=== PATIENT | male | born 1950 | race Caucasian/White ===

== ENCOUNTER 2018-03-30 09:40 | Inpatient (IN) | payer MEDICARE, BC, OTHER ==
[~2018-03-30] VITALS: Ht 182.9 cm; Wt 101.3 kg
[2018-03-30 10:31] LABS: EOSINOPHILS # (AUTO) 0.1 X10'3 (0-0.9); HEMOGLOBIN 13.7 g/dl (14.0-17.9); LYMPHOCYTES # (AUTO) 1.3 X10'3 (1.1-4.8)
[2018-03-30 10:36] LABS: BASOPHILS % (AUTO) 0.6 % (0-1); EOSINOPHILS % (AUTO) 1.2 % (0-6); HEMATOCRIT 41.1 % (42.0-52.0); LYMPHOCYTES % (AUTO) 18.2 % (21-51); MEAN CORPUSCULAR HEMOGLOBIN 34.2 PG (27.0-31.0); MEAN CORPUSCULAR HGB CONC 33.4 % (33.0-36.5); MEAN CORPUSCULAR VOLUME 102.2 FL (78-98); MEAN PLATELET VOLUME 8.8 FL (7.4-10.4); MONOCYTES # (AUTO) 1.2 X10'3 (0-0.9); MONOCYTES % (AUTO) 16.5 % (2-12); NEUTROPHILS # (AUTO) 4.7 X10'3 (1.8-7.7); NEUTROPHILS % (AUTO) 63.5 % (42-75); PLATELET COUNT 154 X10'3 (140-440); RED BLOOD COUNT 4.02 X10'6 (4.70-6.10); RED CELL DISTRIBUTION WIDTH 12.1 % (11.5-14.5); WHITE BLOOD COUNT 7.3 X10'3 (4.5-11.0)
[2018-03-30 10:42] LABS: INR 1.2 INR; PARTIAL THROMBOPLASTIN TIME 28 SECONDS (22-32); PROTHROMBIN TIME 12.1 SECONDS (9.0-12.0)
[2018-03-30 10:44] LABS: ALANINE AMINOTRANSFERASE 33 U/L (12-78); ALBUMIN 3.5 G/DL (3.4-5.0); ALBUMIN/GLOBULIN RATIO 0.8 (1.1-1.5); ALKALINE PHOSPHATASE 115 IU/L (46-116); ANION GAP 8 (8-16); ASPARTATE AMINO TRANSFERASE 29 U/L (10-37); BILIRUBIN,TOTAL 1.2 MG/DL (0.1-1.0); BLOOD UREA NITROGEN 14 MG/DL (7-18); BUN/CREATININE RATIO 14.4 (5.4-32.0); CALCIUM 8.7 MG/DL (8.5-10.1); CHLORIDE 99 MMOL/L (99-107); CREATININE 0.97 MG/DL (0.60-1.10); GLUCOSE 128 MG/DL (70-104); SODIUM 137 MMOL/L (135-145); TOTAL CARBON DIOXIDE 30.1 MMOL/L (24-32); TOTAL PROTEIN 7.8 G/DL (6.4-8.2); eGFR 77 ML/MIN
[2018-03-30] MEDS ORDERED: furosemide 10 MG/1 ML 10ml inj IV ONE (11:00)
[2018-03-30] MEDS ORDERED: FURO-150 PO (11:29)
[2018-03-30] MEDS ORDERED: AMLO2.5T2 PO (11:29)
[2018-03-30] MEDS ORDERED: ATOR10TA87 PO (11:29)
[2018-03-30] MEDS ORDERED: OMEP20CA10 PO (11:31)
[2018-03-30] MEDS ORDERED: POTA10CA44 PO (11:31)
[2018-03-30] MEDS ORDERED: ondansetron/PF 4mg/2ml inj IV PRN (12:40)
[2018-03-30] MEDS ORDERED: magnesium Cl slow-release 64mg tablet PO PRN (12:40)
[2018-03-30] MEDS ORDERED: magnesium 2GM in 50ml NS 50 ML IV PRN (12:40)
[2018-03-30] MEDS ORDERED: acetaminophen 325mg tablet PO PRN ×2 (12:40)
[2018-03-30] MEDS ORDERED: magnesium 4gm in 100ml NS 100 ML IV PRN (12:40)
[2018-03-30] MEDS ORDERED: potassium Cl 20 mEq SR tablet PO PRN ×2 (12:40)
[2018-03-30] MEDS ORDERED: potassium Cl 40MEQ/NS 500ml 500 ML IV PRN ×2 (12:40)
[2018-03-30] MEDS ORDERED: iohexol 350MG/ML 100ml bottle IV ONE ×2 (13:25→13:43)
[2018-03-30] MEDS: docusate sod 100mg capsule PO SCH (20:00)
[2018-03-30] MEDS: heparin, porcine 5000 units/ml vial SQ SCH (20:58)
[2018-03-30] MEDS ORDERED: temazepam 15mg capsule PO PRN (21:00)
[2018-03-30 21:18] VITALS: BP 120/60
--- NOTE | 2018-03-30 21:18 | NUR ---
pt arrived to floor via wheel chair, ambulated to bed with a steady gait. pt oriented to room and call light. VSS. 2RN skin check performed with Celso SHEA.
[2018-03-30 22:00] VITALS: BP 137/63
[2018-03-31 02:00] VITALS: BP 140/62
[2018-03-31 05:50] LABS: ALANINE AMINOTRANSFERASE 26 U/L (12-78); ALBUMIN 3.3 G/DL (3.4-5.0); ALBUMIN/GLOBULIN RATIO 0.8 (1.1-1.5); ALKALINE PHOSPHATASE 109 IU/L (46-116); ANION GAP 10 (8-16); ASPARTATE AMINO TRANSFERASE 29 U/L (10-37); BILIRUBIN,TOTAL 1.2 MG/DL (0.1-1.0); BLOOD UREA NITROGEN 12 MG/DL (7-18); BUN/CREATININE RATIO 14.3 (5.4-32.0); CALCIUM 8.7 MG/DL (8.5-10.1); CHLORIDE 101 MMOL/L (99-107); CHOL/HDL RATIO 1.8 (0.00-4.99); CHOLESTEROL 121 MG/DL (0-200); CREATININE 0.84 MG/DL (0.60-1.10); GLUCOSE 104 MG/DL (70-104); HDL CHOLESTEROL 68 MG/DL (35-60); LDL CHOLESTEROL 46 MG/DL (50-100); POTASSIUM 3.7 MMOL/L (3.5-5.1); SODIUM 139 MMOL/L (135-145); TOTAL CARBON DIOXIDE 27.8 MMOL/L (24-32); TOTAL PROTEIN 7.4 G/DL (6.4-8.2); TRIGLYCERIDES 77 MG/DL (20-135); eGFR > 90 ML/MIN
[2018-03-31 05:52] LABS: BASOPHILS % (AUTO) 0.4 % (0-1); EOSINOPHILS # (AUTO) 0.2 X10'3 (0-0.9); EOSINOPHILS % (AUTO) 2.5 % (0-6); HEMATOCRIT 41.3 % (42.0-52.0); HEMOGLOBIN 13.6 g/dl (14.0-17.9); LYMPHOCYTES # (AUTO) 1.3 X10'3 (1.1-4.8); MEAN CORPUSCULAR HEMOGLOBIN 33.4 PG (27.0-31.0); MEAN CORPUSCULAR HGB CONC 32.9 % (33.0-36.5); MEAN CORPUSCULAR VOLUME 101.6 FL (78-98); MEAN PLATELET VOLUME 9.2 FL (7.4-10.4); MONOCYTES % (AUTO) 16.2 % (2-12); NEUTROPHILS # (AUTO) 3.7 X10'3 (1.8-7.7); NEUTROPHILS % (AUTO) 59.9 % (42-75); PLATELET COUNT 135 X10'3 (140-440); RED BLOOD COUNT 4.06 X10'6 (4.70-6.10); RED CELL DISTRIBUTION WIDTH 12.3 % (11.5-14.5); WHITE BLOOD COUNT 6.2 X10'3 (4.5-11.0)
[2018-03-31 06:00] VITALS: BP 151/76
--- NOTE | 2018-03-31 06:19 | NUR ---
Problems reprioritized. Patient report given, questions answered & plan of care reviewed with Jesusita SHEA.
--- NOTE | 2018-03-31 06:52 | NUR ---
Patient in room PCU 3026. I have received report from Abelardo SHEA and had the opportunity to ask questions and assume patient care.
[2018-03-31] MEDS: docusate sod 100mg capsule PO SCH ×2 (07:54→19:18)
[2018-03-31] MEDS: atorvastatin 10mg tablet PO SCH (07:54)
[2018-03-31] MEDS: pantoprazole 40mg Tablet.DR PO SCH (07:54)
[2018-03-31] MEDS: K and/or MAG REPLACEMENT MC SCH (07:56)
[2018-03-31] MEDS: heparin, porcine 5000 units/ml vial SQ SCH ×2 (07:58→19:19)
[2018-03-31] MEDS ORDERED: furosemide 10 MG/1 ML 10ml inj IV SCH (08:00)
[2018-03-31] MEDS ORDERED: amLODIPine 5mg tablet PO SCH (08:00)
[2018-03-31] MEDS: CefTRIAXone/D5W-Rocephin 1gm 50 ML IV SCH (10:30)
[2018-03-31 11:00] VITALS: BP 117/70
[2018-03-31] MEDS: folic acid 1mg tablet PO SCH (11:54)
[2018-03-31 15:00] VITALS: BP 155/55
[2018-03-31] MEDS: ipratropium/albuterol 3ml nebule NEB SCH ×3 (15:23→23:45)
[2018-03-31] MEDS: potassium Cl 20 mEq SR tablet PO SCH (17:29)
[2018-03-31 18:00] VITALS: BP 117/59
--- NOTE | 2018-03-31 18:42 | NUR ---
Problems reprioritized. Patient report given, questions answered & plan of care reviewed with Abelardo SHEA.
--- NOTE | 2018-03-31 18:59 | NUR ---
Patient in room PCU 3013. I have received report from Jesusita SHEA and had the opportunity to ask questions and assume patient care.
[2018-03-31] MEDS: thiamine 100mg tablet PO SCH (19:18)
[2018-03-31] MEDS: furosemide 10 MG/1 ML 10ml inj IV SCH (19:25)
[2018-03-31] MEDS: clotrimazole topical cream 15gm tube TP SCH (19:27)
[2018-03-31 22:00] VITALS: BP 113/60
[2018-04-01] VITALS (7 sets, daily range): BP systolic 126–155; BP diastolic 61–69
[2018-04-01] MEDS: ipratropium/albuterol 3ml nebule NEB SCH ×6 (02:30→23:12)
[2018-04-01 06:32] LABS: BASOPHILS % (AUTO) 0.3 % (0-1); EOSINOPHILS # (AUTO) 0.1 X10'3 (0-0.9); HEMATOCRIT 40.2 % (42.0-52.0); HEMOGLOBIN 13.6 g/dl (14.0-17.9); LYMPHOCYTES # (AUTO) 1.5 X10'3 (1.1-4.8); LYMPHOCYTES % (AUTO) 22.9 % (21-51); MEAN CORPUSCULAR HGB CONC 33.8 % (33.0-36.5); MEAN CORPUSCULAR VOLUME 100.5 FL (78-98); MEAN PLATELET VOLUME 8.9 FL (7.4-10.4); MONOCYTES % (AUTO) 15.9 % (2-12); NEUTROPHILS # (AUTO) 3.8 X10'3 (1.8-7.7); NEUTROPHILS % (AUTO) 58.9 % (42-75); PLATELET COUNT 145 X10'3 (140-440); RED CELL DISTRIBUTION WIDTH 12.3 % (11.5-14.5); WHITE BLOOD COUNT 6.4 X10'3 (4.5-11.0)
--- NOTE | 2018-04-01 06:47 | NUR ---
Problems reprioritized. Patient report given, questions answered & plan of care reviewed with Brit SHEA.
[2018-04-01 06:54] LABS: ALANINE AMINOTRANSFERASE 29 U/L (12-78); ALBUMIN 3.4 G/DL (3.4-5.0); ALBUMIN/GLOBULIN RATIO 0.8 (1.1-1.5); ALKALINE PHOSPHATASE 108 IU/L (46-116); ANION GAP 12 (8-16); ASPARTATE AMINO TRANSFERASE 24 U/L (10-37); BILIRUBIN,TOTAL 0.9 MG/DL (0.1-1.0); BLOOD UREA NITROGEN 10 MG/DL (7-18); CALCIUM 8.9 MG/DL (8.5-10.1); CHLORIDE 99 MMOL/L (99-107); GLUCOSE 112 MG/DL (70-104); MAGNESIUM 1.9 MG/DL (1.5-2.4); POTASSIUM 3.6 MMOL/L (3.5-5.1); SODIUM 137 MMOL/L (135-145); TOTAL CARBON DIOXIDE 26.4 MMOL/L (24-32); TOTAL PROTEIN 7.6 G/DL (6.4-8.2); eGFR 74 ML/MIN
--- NOTE | 2018-04-01 06:57 | NUR ---
Patient in room PCU 3013. I have received report from MONSE OSULLIVAN and had the opportunity to ask questions and assume patient care.
[2018-04-01] MEDS: pantoprazole 40mg Tablet.DR PO SCH (07:26)
[2018-04-01] MEDS: docusate sod 100mg capsule PO SCH ×2 (07:26→20:13)
[2018-04-01] MEDS: heparin, porcine 5000 units/ml vial SQ SCH ×2 (07:26→20:17)
[2018-04-01] MEDS: thiamine 100mg tablet PO SCH ×2 (07:26→20:15)
[2018-04-01] MEDS: atorvastatin 10mg tablet PO SCH (07:27)
[2018-04-01] MEDS: folic acid 1mg tablet PO SCH (07:27)
[2018-04-01] MEDS: furosemide 10 MG/1 ML 10ml inj IV SCH ×2 (07:29→20:19)
[2018-04-01] MEDS: CefTRIAXone/D5W-Rocephin 1gm 50 ML IV SCH (07:33)
[2018-04-01] MEDS: K and/or MAG REPLACEMENT MC SCH (07:36)
[2018-04-01] MEDS: clotrimazole topical cream 15gm tube TP SCH ×2 (07:37→20:17)
[2018-04-01] MEDS: potassium Cl 20 mEq SR tablet PO SCH ×2 (07:39→17:17)
[2018-04-01] MEDS: diphenhydrAMINE 25mg capsule PO SCH ×2 (14:22→20:14)
--- NOTE | 2018-04-01 18:43 | NUR ---
Problems reprioritized. Patient report given, questions answered & plan of care reviewed with MONSE ANDERSON SBAR AND BEDSIDE.
--- NOTE | 2018-04-01 18:44 | NUR ---
Patient in room PCU 3013. I have received report from MONSE Rae, and MONSE Peter and had the opportunity to ask questions and assume patient care.
[2018-04-01] MEDS: famotidine 20mg tablet PO SCH (20:13)
[2018-04-02 02:00] VITALS: BP 126/67
[2018-04-02] MEDS: ipratropium/albuterol 3ml nebule NEB SCH ×2 (03:00→07:00)
[2018-04-02 05:26] LABS: BASOPHILS % (AUTO) 0.5 % (0-1); EOSINOPHILS # (AUTO) 0.2 X10'3 (0-0.9); EOSINOPHILS % (AUTO) 3.8 % (0-6); HEMATOCRIT 42.9 % (42.0-52.0); HEMOGLOBIN 14.1 g/dl (14.0-17.9); LYMPHOCYTES # (AUTO) 1.2 X10'3 (1.1-4.8); LYMPHOCYTES % (AUTO) 19.2 % (21-51); MEAN CORPUSCULAR HEMOGLOBIN 33.5 PG (27.0-31.0); MEAN CORPUSCULAR VOLUME 101.7 FL (78-98); MEAN PLATELET VOLUME 8.2 FL (7.4-10.4); MONOCYTES % (AUTO) 15.6 % (2-12); NEUTROPHILS # (AUTO) 3.7 X10'3 (1.8-7.7); NEUTROPHILS % (AUTO) 60.9 % (42-75); PLATELET COUNT 148 X10'3 (140-440); RED BLOOD COUNT 4.22 X10'6 (4.70-6.10); WHITE BLOOD COUNT 6.1 X10'3 (4.5-11.0)
[2018-04-02 06:02] LABS: ALANINE AMINOTRANSFERASE 30 U/L (12-78); ALBUMIN 3.3 G/DL (3.4-5.0); ALBUMIN/GLOBULIN RATIO 0.8 (1.1-1.5); ALKALINE PHOSPHATASE 105 IU/L (46-116); ANION GAP 13 (8-16); ASPARTATE AMINO TRANSFERASE 26 U/L (10-37); BILIRUBIN,TOTAL 0.8 MG/DL (0.1-1.0); BLOOD UREA NITROGEN 9 MG/DL (7-18); BUN/CREATININE RATIO 10.3 (5.4-32.0); CALCIUM 9.3 MG/DL (8.5-10.1); CHLORIDE 100 MMOL/L (99-107); CREATININE 0.87 MG/DL (0.60-1.10); GLUCOSE 109 MG/DL (70-104); MAGNESIUM 1.9 MG/DL (1.5-2.4); SODIUM 138 MMOL/L (135-145); TOTAL CARBON DIOXIDE 24.8 MMOL/L (24-32); TOTAL PROTEIN 7.7 G/DL (6.4-8.2); eGFR 87 ML/MIN
--- NOTE | 2018-04-02 06:11 | NUR ---
Problems reprioritized. Patient report given, questions answered & plan of care reviewed with MONSE Cerda.
--- NOTE | 2018-04-02 06:20 | NUR ---
Patient in room PCU 3013. I have received report from Sandeep SHEA and had the opportunity to ask questions and assume patient care.
[2018-04-02 07:00] VITALS: BP 149/77
[2018-04-02] MEDS: furosemide 10 MG/1 ML 10ml inj IV SCH (07:48)
[2018-04-02] MEDS: famotidine 20mg tablet PO SCH (07:49)
[2018-04-02] MEDS: docusate sod 100mg capsule PO SCH (07:49)
[2018-04-02] MEDS: CefTRIAXone/D5W-Rocephin 1gm 50 ML IV SCH (07:49)
[2018-04-02] MEDS: diphenhydrAMINE 25mg capsule PO SCH (07:49)
[2018-04-02] MEDS: folic acid 1mg tablet PO SCH (07:50)
[2018-04-02] MEDS: atorvastatin 10mg tablet PO SCH (07:50)
[2018-04-02] MEDS: thiamine 100mg tablet PO SCH (07:50)
[2018-04-02] MEDS: potassium Cl 20 mEq SR tablet PO SCH (07:50)
[2018-04-02] MEDS: pantoprazole 40mg Tablet.DR PO SCH (07:50)
[2018-04-02] MEDS: heparin, porcine 5000 units/ml vial SQ SCH (07:51)
[2018-04-02] MEDS: K and/or MAG REPLACEMENT MC SCH (07:58)
--- NOTE | 2018-04-02 08:06 | NUR ---
PAGER ID: [phone] MESSAGE: [phone]/Hal Luis requesting early discharge today. Thank you. Zaida [phone]
[2018-04-02] MEDS: clotrimazole topical cream 15gm tube TP SCH (08:25)
--- NOTE | 2018-04-02 11:10 | NUR ---
Pt walked to elevator to meet in vehicle for discharge. All discharge paperwork completed, reviewed, and signed. IV dc'd, telebox returned, and medical id bracelets removed. Pt happy with care and discharge.
== END 2018-04-02 11:18 | disposition home or self-care (01) | DRG 602 ==
LOC: ER 09:42 → ED HOLD 12:39 → PCU 3S 21:20
PROVIDERS: ADMIT Internal Medicine; ATTEND Family Medicine
PROC: B32T1ZZ Computerized Tomography (CT Scan) of Left Pulmonary Artery using Low Osmolar Contrast (ICD-10-PCS; principal; 2018-03-30)
PROC: B3201ZZ Computerized Tomography (CT Scan) of Thoracic Aorta using Low Osmolar Contrast (ICD-10-PCS; 2018-03-30)
PROC: B32S1ZZ Computerized Tomography (CT Scan) of Right Pulmonary Artery using Low Osmolar Contrast (ICD-10-PCS; 2018-03-30)
DX: L03.116 Cellulitis of left lower limb (principal); I50.33 Acute on chronic diastolic (congestive) heart failure; J44.1 Chronic obstructive pulmonary disease with (acute) exacerbation; L03.115 Cellulitis of right lower limb; F12.90 Cannabis use, unspecified, uncomplicated; F10.20 Alcohol dependence, uncomplicated; E66.9 Obesity, unspecified; I48.2 Chronic atrial fibrillation; B35.3 Tinea pedis; L30.9 Dermatitis, unspecified; Z87.891 Personal history of nicotine dependence; Z79.899 Other long term (current) drug therapy; Z68.30 Body mass index [BMI] 30.0-30.9, adult
CPT/HCPCS: 36415; 71045; 71275; 80053; 80061; 83605; 83735; 83880; 84484; 85025; 85610; 85730; 87040; 87070; 93005; 93306; 93970; 94640; 94760; 96374; 99285; G0378; J0696; J1644; J1940; Q0163; Q9967